=== PATIENT | female | born 1995 | race Caucasian/White ===

== ENCOUNTER 2017-12-23 18:27 | Emergency (ER) | payer OTHER ==
[~2017-12-23] VITALS: Ht 162.6 cm; Wt 120.2 kg
--- NOTE | 2017-12-23 18:37 | ED.ADGEN ---
Adult General Chief Complaint Chief Complaint ".. I have an upset stomach.... nausea and vomiting... maybe I am .... I normally see Dr. Cutler at [place]... "-.. When I vomiting .. I almost pass out...." I'm worried I may be " HPI HPI Patient is a 22 year old female who presents with above hx and complaints generalized abd. pain. Pt. has had two days of nausea and vomiting. Pt. denies intake of bad food, travel or specific ill contacts. Patient denies any vaginal discharge. Patient has had a previous episode Trichomonas. 3 lifetime sex partners. Does not remember exactly her last period. No history of trauma. Did manage to get some crackers down at noon before vomiting. Patient normally follows with Dr. Cutler at [facility]. Review of Systems Review of Systems Constitutional: Denies fever or chills [] Eyes: Denies change in visual acuity, redness, or eye pain [] HENT: Denies nasal congestion or sore throat [] Respiratory: Denies cough or shortness of breath [] Cardiovascular: No additional information not addressed in HPI [] GI: Complaints of generalized abdominal pain, nausea, vomiting,. Denies bloody stools or diarrhea [] : Denies dysuria or hematuria [] Musculoskeletal: Denies back pain or joint pain [] Integument: Denies rash or skin lesions [] Neurologic: Denies headache, focal weakness or sensory changes [] Endocrine: Denies polyuria or polydipsia [] All other systems were reviewed and found to be within normal limits, except as documented in this note. Family History Family History Noncontributory Current Medications Current Medications Current Medications Medications (Trade) Dose Ordered Sig/Hari Start Time Stop Time Status Last Admin Dose Admin Famotidine (Pepcid) 20 mg 1X ONCE 12/23/17 20:15 12/23/17 20:16 DC 12/23/17 20:07 20 MG Lactated Ringer's 1,000 ml @ 1,000 mls/hr Q1H 12/23/17 19:01 12/23/17 20:00 DC 12/23/17 19:46 1,000 MLS/HR Ondansetron HCl (Zofran Odt) 8 mg 1X ONCE 12/23/17 20:15 12/23/17 20:16 DC 12/23/17 20:07 8 MG Allergies Allergies Allergies Coded Allergies Type Severity Reaction Last Updated Verified prochlorperazine Allergy Unknown 12/23/17 Yes Physical Exam Physical Exam Constitutional: Mild distress, non-toxic appearance. [] HENT: Normocephalic, atraumatic, bilateral external ears normal, oropharynx moist, no oral exudates, nose normal. Lower lip stud Eyes: PERRLA, EOMI, conjunctiva normal, no discharge. [] Glasses Neck: Normal range of motion, no tenderness, supple, no stridor. [] Cardiovascular:Heart rate regular rhythm, no murmur [] Lungs & Thorax: Bilateral breath sounds clear to auscultation [] Abdomen: Bowel sounds normal, soft, mild generalized tenderness, no masses, no pulsatile masses. Obese. Distended. Declines rectal or pelvic exam Skin: Warm, dry, no erythema, no rash. [] Back: No tenderness, no CVA tenderness. [] Extremities: No tenderness, no cyanosis, no clubbing, ROM intact, no edema. [] No psoas or obturator sign. Neurologic: Alert and oriented X 3, normal motor function, normal sensory function, no focal deficits noted. [] Psychologic: Affect anxious, judgement normal, mood normal. [] Current Patient Data Vital Signs Vital Signs Date Time Temp Pulse Resp B/P (MAP) Pulse Ox O2 Delivery O2 Flow Rate FiO2 12/23/17 21:22 57 18 107/56 (73) 100 Room Air 12/23/17 18:50 98.2 Lab Results Laboratory Tests Test 12/23/17 19:25 White Blood Count 10.1 x10^3/uL (4.0-11.0) Red Blood Count 4.58 x10^6/uL (3.50-5.40) Hemoglobin 13.2 g/dL (12.0-15.5) Hematocrit 38.8 % (36.0-47.0) Mean Corpuscular Volume 85 fL (79-100) Mean Corpuscular Hemoglobin 29 pg (25-35) Mean Corpuscular Hemoglobin Concent 34 g/dL (31-37) Red Cell Distribution Width 14.4 % (11.5-14.5) Platelet Count 329 x10^3/uL (140-400) Neutrophils (%) (Auto) 62 % (31-73) Lymphocytes (%) (Auto) 26 % (24-48) Monocytes (%) (Auto) 9 % (0-9) Eosinophils (%) (Auto) 2 % (0-3) Basophils (%) (Auto) 1 % (0-3) Neutrophils # (Auto) 6.3 x10^3uL (1.8-7.7) Lymphocytes # (Auto) 2.7 x10^3/uL (1.0-4.8) Monocytes # (Auto) 0.9 x10^3/uL (0.0-1.1) Eosinophils # (Auto) 0.2 x10^3/uL (0.0-0.7) Basophils # (Auto) 0.1 x10^3/uL (0.0-0.2) Urine Collection Type Unknown Urine Color Yellow Urine Clarity Clear Urine pH 6.5 Urine Specific [place] 1.015 Urine Protein Neg (NEG-TRACE) Urine Glucose (UA) Neg mg/dL (NEG) Urine Ketones (Stick) Neg mg/dL (NEG) Urine Blood Neg (NEG) Urine Nitrite Neg (NEG) Urine Bilirubin Neg (NEG) Urine Urobilinogen Dipstick 0.2 mg/dL (0.2 mg/dL) Urine Leukocyte Esterase Neg (NEG) Urine RBC Rare /HPF (0-2) Urine WBC Occ /HPF (0-4) Urine Squamous Epithelial Cells Few /LPF Urine Transitional Epithelial Cells Occ /LPF Urine Bacteria Few /HPF (0-FEW) Maternal Serum HCG Beta Subunit < 1 mIU/mL (0-6) Sodium Level 138 mmol/L (136-145) Potassium Level 3.5 mmol/L (3.5-5.1) Chloride Level 102 mmol/L (98-107) Carbon Dioxide Level 31 mmol/L (21-32) Anion Gap 5 (6-14) L Blood Urea Nitrogen 7 mg/dL (7-20) Creatinine 0.7 mg/dL (0.6-1.0) Estimated GFR (Cockcroft-Gault) 105.6 Glucose Level 85 mg/dL (70-99) Calcium Level 9.2 mg/dL (8.5-10.1) Total Bilirubin 0.4 mg/dL (0.2-1.0) Direct Bilirubin 0.1 mg/dL (0.0-0.2) Aspartate Amino Transferase (AST) 25 U/L (15-37) Alanine Aminotransferase (ALT) 39 U/L (14-59) Alkaline Phosphatase 84 U/L (46-116) Troponin I Quantitative < 0.017 ng/mL (0-0.055) Total Protein 7.6 g/dL (6.4-8.2) Albumin 3.4 g/dL (3.4-5.0) Lipase 128 U/L (73-393) Urine Opiates Screen Neg (NEG) Urine Methadone Screen Neg (NEG) Urine Barbiturates Neg (NEG) Urine Phencyclidine Screen Neg (NEG) Urine Amphetamine/Methamphetamine Neg (NEG) Urine Benzodiazepines Screen Neg (NEG) Urine Cocaine Screen Neg (NEG) Urine Cannabinoids Screen Neg (NEG) Urine Ethyl Alcohol Neg (NEG) EKG EKG [] Radiology/Procedures Radiology/Procedures [] Course & Med Decision Making Course & Med Decision Making Pertinent Labs and Imaging studies reviewed. (See chart for details). Patient's stay on clear fluid diet only. No milk products no solids. Clear fluids only must allow bowel rest. Take Zofran 8 mg up 4 times a day for nausea and vomiting. Follow-up primary care. Return if any concerns. [] Final Impression Final Impression 1. Nausea and vomiting[] 2. Abdomen pain 3. Viral syndrome Dragon Disclaimer Dragon Disclaimer This electronic medical record was generated, in whole or in part, using a voice recognition dictation system. EMILY MARSH MD Dec 23, 2017 18:37
--- NOTE | 2017-12-23 19:04 | EKG ---
[address] [address] Test Date: 2017-12-23 Test Time: 19:00:12 Pat Name: MIKE CLEVELAND Department: Room: Gender: F English Instructor: : 1995 Requested By: EMILY MARSH Order Number: [id number] Reading MD: Arturo Alonzo MD Measurements Intervals [place] Rate: 63 P: 29 MS: 130 QRS: 51 QRSD: 94 T: 26 QT: 380 QTc: 392 Interpretive Statements SINUS RHYTHM Electronically Signed On 12-24-2017 12:25:32 CDT by Arturo Alonzo MD
[2017-12-23] MEDS: IV RINGERS SOLUTION,LACTATED 1,000 ML IV SCH (19:46)
[2017-12-23 19:53] LABS: BASO # 0.1 x10^3/uL (0.0-0.2); BASO % 1 % (0-3); EOS # 0.2 x10^3/uL (0.0-0.7); EOS % 2 % (0-3); HEMATOCRIT 38.8 % (36.0-47.0); HEMOGLOBIN 13.2 g/dL (12.0-15.5); LYMPH # 2.7 x10^3/uL (1.0-4.8); LYMPH % 26 % (24-48); MEAN CORPUSCULAR HEMOGLOBIN 29 pg (25-35); MEAN CORPUSCULAR HGB CONC 34 g/dL (31-37); MEAN CORPUSCULAR VOLUME 85 fL (79-100); MONO # 0.9 x10^3/uL (0.0-1.1); MONO % 9 % (0-9); NEUT # 6.3 x10^3uL (1.8-7.7); NEUT % 62 % (31-73); PLATELET COUNT 329 x10^3/uL (140-400); RED BLOOD COUNT 4.58 x10^6/uL (3.50-5.40); RED CELL DISTRIBUTION WIDTH 14.4 % (11.5-14.5); WHITE BLOOD COUNT 10.1 x10^3/uL (4.0-11.0)
[2017-12-23 19:59] LABS: AMPHETAMINE/METHAMPHETAMINE NEG (NEG); BARBITURATES NEG (NEG); BENZODIAZEPINES NEG (NEG); CANNABINOIDS NEG (NEG); COCAINE NEG (NEG); METHADONE NEG (NEG); OPIATES NEG (NEG); PHENCYCLIDINE NEG (NEG)
[2017-12-23 20:02] LABS: BACTERIA,URINE FEW /HPF (0-FEW); BILIRUBIN,URINE NEG (NEG); CLARITY,URINE CLEAR; COLOR,URINE YELLOW; GLUCOSE,URINE NEG (NEG); NITRITE,URINE NEG (NEG); RBC,URINE RARE /HPF (0-2); UROBILINOGEN,URINE 0.2 mg/dL (0.2 mg/dL); WBC,URINE OCC /HPF (0-4)
[2017-12-23 20:03] LABS: SQUAMOUS EPITHELIAL CELL,UR FEW /LPF
[2017-12-23] MEDS: FAMOTIDINE 20 MG TABLET PO ONE (20:07)
[2017-12-23] MEDS: ONDANSETRON ODT 4 MG TAB.RAPDIS PO ONE (20:07)
[2017-12-23 20:09] LABS: ALBUMIN 3.4 g/dL (3.4-5.0); CALCIUM 9.2 mg/dL (8.5-10.1); CREATININE 0.7 mg/dL (0.6-1.0); DIRECT BILIRUBIN 0.1 mg/dL (0.0-0.2); GFR 105.6; POTASSIUM 3.5 mmol/L (3.5-5.1); TOTAL BILIRUBIN 0.4 mg/dL (0.2-1.0); TOTAL PROTEIN 7.6 g/dL (6.4-8.2)
[2017-12-23] MEDS ORDERED: ONDA8TAB12 PO (20:27)
[2017-12-23 21:22] VITALS: BP 107/56
== END 2017-12-23 21:22 | disposition home or self-care (01) ==
LOC: ER 18:27
DX: B34.9 Viral infection, unspecified (principal); R11.2 Nausea with vomiting, unspecified; Z88.8 Allergy status to other drugs, medicaments and biological substances
CPT/HCPCS: 36415; 80048; 80076; 80307; 81001; 83690; 84484; 84702; 85025; 93005; 96360; 99285; J7120; Q0162; G0479

== ENCOUNTER 2018-03-22 17:37 | Emergency (ER) | payer OTHER ==
[~2018-03-22] VITALS: Ht 165.1 cm; Wt 115.1 kg
[~2018-03-22 17:37] MED LIST: ONDA8TAB12 PO
[2018-03-22] MEDS ORDERED: IV NORMAL SALINE 1,000ML 1,000 ML IV SCH (17:50)
--- NOTE | 2018-03-22 17:53 | PHYS DOC ---
Past History Past Medical History: Anxiety, Asthma, Depression, Other Past Surgical History: Appendectomy, Cholecystectomy Alcohol Use: Occasionally Drug Use: None Adult General Chief Complaint Chief Complaint: NAUSEA/VOMITING/DIARRHEA HPI HPI Patient is a 22 year old female who presents with of nausea and vomiting and diarrhea for the last 24 hours. Patient states she vomited more than 10-15 times with nonbloody material and had the same number of diarrhea for the last 24 hours with abdominal muscle pain during episodes of vomiting. Patient denies fever and chills, urinary symptoms, sick contact. Review of Systems Review of Systems Constitutional: Denies fever or chills [] Eyes: Denies change in visual acuity, redness, or eye pain [] HENT: Denies nasal congestion or sore throat [] Respiratory: Denies cough or shortness of breath [] Cardiovascular: No additional information not addressed in HPI [] GI: Reports abdominal pain, nausea, vomiting, diarrhea [] : Denies dysuria or hematuria [] Musculoskeletal: Denies back pain or joint pain [] Integument: Denies rash or skin lesions [] Neurologic: Denies headache, focal weakness or sensory changes [] Endocrine: Denies polyuria or polydipsia [] All other systems were reviewed and found to be within normal limits, except as documented in this note. Allergies Allergies Allergies Coded Allergies Type Severity Reaction Last Updated Verified prochlorperazine Allergy Unknown 12/23/17 Yes Physical Exam Physical Exam Constitutional: Well nourished, mild distress, non-toxic appearance. [] HENT: Normocephalic, atraumatic, oropharynx dry, no oral exudates, nose normal. [] Eyes: PERRLA, EOMI, conjunctiva normal, no discharge. [] Neck: Normal range of motion, no tenderness, supple, no stridor. [] Cardiovascular:Heart rate regular rhythm, no murmur [] Lungs & Thorax: Bilateral breath sounds clear to auscultation [] Abdomen: Bowel sounds normal, soft, no tenderness, no masses, no pulsatile masses. [] Skin: Warm, dry, no erythema, no rash. [] Back: No tenderness, no CVA tenderness. [] Extremities: No tenderness, no cyanosis, no clubbing, ROM intact, no edema. [] Neurologic: Alert and oriented X 3, normal motor function, normal sensory function, no focal deficits noted. [] Psychologic: Affect normal, judgement normal, mood normal. [] EKG EKG [] Radiology/Procedures Radiology/Procedures [] Course & Med Decision Making Course & Med Decision Making Pertinent Labs are pending. Patient's care transferred to at 1800. I took over care of the patient at 1800. The patient's labs are unremarkable. She has gotten 2 L of normal saline as well as 8 mg of Zofran. This has controlled her vomiting. She has not had further diarrhea in the ED. I will discharge her with Zofran ODT. She is stable for discharge at this time. [] Dragon Disclaimer Dragon Disclaimer This electronic medical record was generated, in whole or in part, using a voice recognition dictation system. Departure Departure: Referrals: FUNMI CUMMINGS MD (PCP) Scripts Ondansetron Hcl (ZOFRAN) 8 Mg Tablet 1 TAB PO Q8HRS PRN for NAUSEA/VOMITING, #20 TAB Prov: PATRICIA NUNEZ DO 03/22/18 LYDIA SNYDER MD Mar 22, 2018 17:53 PATRICIA NUNEZ DO Mar 22, 2018 20:11
[2018-03-22] MEDS ORDERED: ONDANSETRON PF 4 MG/2 ML VIAL. IV ONE ×2 (18:00→20:15)
[2018-03-22 18:19] LABS: BASO % 0 % (0-3); EOS # 0.1 x10^3/uL (0.0-0.7); EOS % 1 % (0-3); HEMOGLOBIN 13.3 g/dL (12.0-15.5); LYMPH # 0.5 x10^3/uL (1.0-4.8); LYMPH % 4 % (24-48); MEAN CORPUSCULAR HEMOGLOBIN 28 pg (25-35); MEAN CORPUSCULAR HGB CONC 33 g/dL (31-37); MEAN CORPUSCULAR VOLUME 85 fL (79-100); MONO # 0.6 x10^3/uL (0.0-1.1); MONO % 5 % (0-9); NEUT # 10.5 x10^3uL (1.8-7.7); NEUT % 90 % (31-73); PLATELET COUNT 269 x10^3/uL (140-400); RED CELL DISTRIBUTION WIDTH 14.2 % (11.5-14.5); WHITE BLOOD COUNT 11.7 x10^3/uL (4.0-11.0)
[2018-03-22 18:26] LABS: ALBUMIN 3.6 g/dL (3.4-5.0); ALBUMIN/GLOBULIN RATIO 0.9 (1.0-1.7); CALCIUM 8.8 mg/dL (8.5-10.1); CREATININE 0.7 mg/dL (0.6-1.0); GFR 105.6; POTASSIUM 3.6 mmol/L (3.5-5.1); TOTAL BILIRUBIN 0.5 mg/dL (0.2-1.0); TOTAL PROTEIN 7.7 g/dL (6.4-8.2)
[2018-03-22] MEDS ORDERED: FAMOTIDINE 20 MG/2 ML VIAL IVP ONE (18:30)
[2018-03-22] MEDS ORDERED: IV NORMAL SALINE 1,000ML 1,000 ML IV ONE (18:45)
[2018-03-22 19:35] LABS: BILIRUBIN,URINE NEG (NEG); CLARITY,URINE HAZY; COLOR,URINE YELLOW; GLUCOSE,URINE NEG (NEG); NITRITE,URINE NEG (NEG); UROBILINOGEN,URINE 0.2 mg/dL (0.2 mg/dL)
[2018-03-22 19:36] LABS: BACTERIA,URINE 0 /HPF (0-FEW); SQUAMOUS EPITHELIAL CELL,UR FEW /LPF
[2018-03-22 19:38] LABS: U PREG PATIENT NEGATIVE (NEG)
[2018-03-22 20:01] VITALS: BP 111/53
[2018-03-22] MEDS ORDERED: ONDA8TAB9 PO (20:03)
== END 2018-03-22 20:17 | disposition home or self-care (01) ==
LOC: ER 17:37
DX: R11.2 Nausea with vomiting, unspecified (principal); R19.7 Diarrhea, unspecified; R10.9 Unspecified abdominal pain; F41.9 Anxiety disorder, unspecified; F32.9 Major depressive disorder, single episode, unspecified; J45.909 Unspecified asthma, uncomplicated; Z90.49 Acquired absence of other specified parts of digestive tract; Z90.89 Acquired absence of other organs; Z88.8 Allergy status to other drugs, medicaments and biological substances
CPT/HCPCS: 36415; 80053; 81001; 81025; 83690; 85025; 96361; 96374; 96375; 96376; 99283; J2405; J3490; J7030

== ENCOUNTER 2018-05-06 21:11 | Emergency (ER) | payer OTHER ==
[~2018-05-06] VITALS: Ht 165.1 cm; Wt 115.7 kg
[2018-05-06 21:11] VITALS: BP 137/73
[~2018-05-06 21:11] MED LIST changes: +ONDA8TAB9 PO
--- NOTE | 2018-05-06 21:24 | ED.ADGEN ---
Past History Past Medical History: Anxiety, Asthma, Depression, Migraines, STD, Other Past Surgical History: Appendectomy, Cholecystectomy Alcohol Use: Occasionally Drug Use: None Adult General Chief Complaint Chief Complaint "...I was walking into my house... and slipped on some Ice... and fell on butt... but my abdomen started hurting.. and I am worried.. I am ... I have not had a period for a month..." HPI HPI Patient is a 22 year old female who presents with above hx and complaints falling on a ice patch. Pt. fell on gluteal area. Pain post fall in in lower abdomen. Pt. concerned she is is . Pt. mother is a nurse and advised to her to come to ED and get an evaluation. Mother reportedly told her she must get a blood test for , because the urine tests are always negative for in her family. Patient does report a spinal for a months since her last period. Hx. 6 lifetime sexual partners. One episode of Trichomonas that was treated. Gives a history of chronic back pain. No vaginal discharge. Hx. no previous pregnancies. History of appendectomy and cholecystectomy. Does have a history of anxiety, chronic back pain, asthma, depression and migraines. Patient follows with Dr. Cutler. Review of Systems Review of Systems Constitutional: Denies fever or chills [] Eyes: Denies change in visual acuity, redness, or eye pain [] HENT: Denies nasal congestion or sore throat [] Respiratory: Denies cough or shortness of breath [] Cardiovascular: No additional information not addressed in HPI [] GI: Complaints of lower abdominal pain, nausea. Denies vomiting, bloody stools or diarrhea [] : Denies dysuria or hematuria [ Hx. of missed period. Musculoskeletal: Chronic low back pain . Denies acute changes or joint pain [] Integument: Denies rash or skin lesions [] Neurologic: Denies headache, focal weakness or sensory changes [] Endocrine: Denies polyuria or polydipsia [] All other systems were reviewed and found to be within normal limits, except as documented in this note. Family History Family History Non-contributory Current Medications Current Medications Current Medications Medications (Trade) Dose Ordered Sig/Hari Start Time Stop Time Status Last Admin Dose Admin Lactated Ringer's 1,000 ml @ 1,000 mls/hr Q1H 05/06/18 21:29 05/06/18 22:28 DC 05/06/18 21:42 1,000 MLS/HR Allergies Allergies Allergies Coded Allergies Type Severity Reaction Last Updated Verified prochlorperazine Allergy Unknown 05/06/18 Yes Physical Exam Physical Exam Constitutional: Mild to moderate distress, non-toxic appearance. [] HENT: Normocephalic, atraumatic, bilateral external ears normal, oropharynx moist, no oral exudates, nose normal. [] Eyes: PERRLA, EOMI, conjunctiva normal, no discharge. [] Neck: Normal range of motion, no tenderness, supple, no stridor. [] Cardiovascular:Heart rate regular rhythm, no murmur [] Lungs & Thorax: Bilateral breath sounds clear to auscultation [] Abdomen: Bowel sounds normal, soft, , no masses, no pulsatile masses. [] Lower abdomen tenderness. Old surgery scars. Obese. Skin: Warm, dry, no erythema, no rash. [] Back: no CVA tenderness. [] Mild para- muscular lumbar tenderness. No midline tenderness. Extremities: , no cyanosis, no clubbing, ROM intact, no edema. [] No psoas or obturator sign. Neurologic: Alert and oriented X 3, normal motor function, normal sensory function, no focal deficits noted. []DTRs are +2 at patella. Psychologic: Affect anxious, judgement normal, mood normal. [] Current Patient Data Vital Signs Vital Signs Date Time Temp Pulse Resp B/P (MAP) Pulse Ox O2 Delivery O2 Flow Rate FiO2 05/06/18 21:11 97.6 95 20 99 Room Air Lab Results Laboratory Tests Test 05/06/18 21:00 05/06/18 21:27 05/06/18 21:33 Urine Collection Type Unknown Urine Color Straw Urine Clarity Clear Urine pH 6.0 Urine Specific [place] <=1.005 Urine Protein Neg (NEG-TRACE) Urine Glucose (UA) Neg mg/dL (NEG) Urine Ketones (Stick) Neg mg/dL (NEG) Urine Blood Neg (NEG) Urine Nitrite Neg (NEG) Urine Bilirubin Neg (NEG) Urine Urobilinogen Dipstick 0.2 mg/dL (0.2 mg/dL) Urine Leukocyte Esterase Neg (NEG) Urine RBC 0 /HPF (0-2) Urine WBC Occ /HPF (0-4) Urine Squamous Epithelial Cells Occ /LPF Urine Bacteria 0 /HPF (0-FEW) Urine Opiates Screen Neg (NEG) Urine Methadone Screen Neg (NEG) Urine Barbiturates Neg (NEG) Urine Phencyclidine Screen Neg (NEG) Urine Amphetamine/Methamphetamine Neg (NEG) Urine Benzodiazepines Screen Neg (NEG) Urine Cocaine Screen Neg (NEG) Urine Cannabinoids Screen Neg (NEG) Urine Ethyl Alcohol Neg (NEG) POC Urine HCG, Qualitative hcg negative (Negative) White Blood Count 11.6 x10^3/uL (4.0-11.0) H Red Blood Count 4.62 x10^6/uL (3.50-5.40) Hemoglobin 13.1 g/dL (12.0-15.5) Hematocrit 38.8 % (36.0-47.0) Mean Corpuscular Volume 84 fL (79-100) Mean Corpuscular Hemoglobin 28 pg (25-35) Mean Corpuscular Hemoglobin Concent 34 g/dL (31-37) Red Cell Distribution Width 14.0 % (11.5-14.5) Platelet Count 317 x10^3/uL (140-400) Neutrophils (%) (Auto) 69 % (31-73) Lymphocytes (%) (Auto) 22 % (24-48) L Monocytes (%) (Auto) 7 % (0-9) Eosinophils (%) (Auto) 1 % (0-3) Basophils (%) (Auto) 1 % (0-3) Neutrophils # (Auto) 7.9 x10^3uL (1.8-7.7) H Lymphocytes # (Auto) 2.5 x10^3/uL (1.0-4.8) Monocytes # (Auto) 0.8 x10^3/uL (0.0-1.1) Eosinophils # (Auto) 0.2 x10^3/uL (0.0-0.7) Basophils # (Auto) 0.1 x10^3/uL (0.0-0.2) Maternal Serum HCG Beta Subunit 1 mIU/mL (0-6) Sodium Level 140 mmol/L (136-145) Potassium Level 3.5 mmol/L (3.5-5.1) Chloride Level 103 mmol/L (98-107) Carbon Dioxide Level 26 mmol/L (21-32) Anion Gap 11 (6-14) Blood Urea Nitrogen 17 mg/dL (7-20) Creatinine 0.7 mg/dL (0.6-1.0) Estimated GFR (Cockcroft-Gault) 105.6 Glucose Level 83 mg/dL (70-99) Calcium Level 9.5 mg/dL (8.5-10.1) Total Bilirubin 0.4 mg/dL (0.2-1.0) Direct Bilirubin 0.1 mg/dL (0.0-0.2) Aspartate Amino Transferase (AST) 23 U/L (15-37) Alanine Aminotransferase (ALT) 38 U/L (14-59) Alkaline Phosphatase 76 U/L (46-116) Total Protein 7.6 g/dL (6.4-8.2) Albumin 3.7 g/dL (3.4-5.0) Amylase Level 46 U/L (25-115) Lipase 116 U/L (73-393) EKG EKG [] Radiology/Procedures Radiology/Procedures [] Course & Med Decision Making Course & Med Decision Making Pertinent Labs and Imaging studies reviewed. (See chart for details) Pt. take Tylenol and ibuprofen for discomfort. Ice packs as needed. Follow-up primary care. Return if any concerns. [] Final Impression Final Impression 1. Abdomen Pain[]-Suspect muscle strain 2. Hx Fall 3. Leukocytosis- mild 11.6 4. Back pain- muscle strain Dragon Disclaimer Dragon Disclaimer This electronic medical record was generated, in whole or in part, using a voice recognition dictation system. Dragon Disclaimer This chart was dictated in whole or in part using Voice Recognition software in a busy, high-work load, and often noisy Emergency Department environment. It may contain unintended and wholly unrecognized errors or omissions. Discharge Summary Visit Information Final Diagnosis Problems Medical Problems: (1) Pain in the abdomen Status: Acute Brief Hospital Course Allergies Allergies Coded Allergies Type Severity Reaction Last Updated Verified prochlorperazine Allergy Unknown 05/06/18 Yes Vital Signs Vital Signs Date Time Temp Pulse Resp B/P (MAP) Pulse Ox O2 Delivery O2 Flow Rate FiO2 05/06/18 21:11 97.6 95 20 99 Room Air Lab Results Laboratory Tests Test 05/06/18 21:00 05/06/18 21:27 05/06/18 21:33 Urine Collection Type Unknown Urine Color Straw Urine Clarity Clear Urine pH 6.0 Urine Specific [place] <=1.005 Urine Protein Neg (NEG-TRACE) Urine Glucose (UA) Neg mg/dL (NEG) Urine Ketones (Stick) Neg mg/dL (NEG) Urine Blood Neg (NEG) Urine Nitrite Neg (NEG) Urine Bilirubin Neg (NEG) Urine Urobilinogen Dipstick 0.2 mg/dL (0.2 mg/dL) Urine Leukocyte Esterase Neg (NEG) Urine RBC 0 /HPF (0-2) Urine WBC Occ /HPF (0-4) Urine Squamous Epithelial Cells Occ /LPF Urine Bacteria 0 /HPF (0-FEW) Urine Opiates Screen Neg (NEG) Urine Methadone Screen Neg (NEG) Urine Barbiturates Neg (NEG) Urine Phencyclidine Screen Neg (NEG) Urine Amphetamine/Methamphetamine Neg (NEG) Urine Benzodiazepines Screen Neg (NEG) Urine Cocaine Screen Neg (NEG) Urine Cannabinoids Screen Neg (NEG) Urine Ethyl Alcohol Neg (NEG) Bedside Urine HCG, Qualitative hcg negative (Negative) White Blood Count 11.6 x10^3/uL (4.0-11.0) Red Blood Count 4.62 x10^6/uL (3.50-5.40) Hemoglobin 13.1 g/dL (12.0-15.5) Hematocrit 38.8 % (36.0-47.0) Mean Corpuscular Volume 84 fL (79-100) Mean Corpuscular Hemoglobin 28 pg (25-35) Mean Corpuscular Hemoglobin Concent 34 g/dL (31-37) Red Cell Distribution Width 14.0 % (11.5-14.5) Platelet Count 317 x10^3/uL (140-400) Neutrophils (%) (Auto) 69 % (31-73) Lymphocytes (%) (Auto) 22 % (24-48) Monocytes (%) (Auto) 7 % (0-9) Eosinophils (%) (Auto) 1 % (0-3) Basophils (%) (Auto) 1 % (0-3) Neutrophils # (Auto) 7.9 x10^3uL (1.8-7.7) Lymphocytes # (Auto) 2.5 x10^3/uL (1.0-4.8) Monocytes # (Auto) 0.8 x10^3/uL (0.0-1.1) Eosinophils # (Auto) 0.2 x10^3/uL (0.0-0.7) Basophils # (Auto) 0.1 x10^3/uL (0.0-0.2) Maternal Serum HCG Beta Subunit 1 mIU/mL (0-6) Sodium Level 140 mmol/L (136-145) Potassium Level 3.5 mmol/L (3.5-5.1) Chloride Level 103 mmol/L (98-107) Carbon Dioxide Level 26 mmol/L (21-32) Anion Gap 11 (6-14) Blood Urea Nitrogen 17 mg/dL (7-20) Creatinine 0.7 mg/dL (0.6-1.0) Estimated GFR (Cockcroft-Gault) 105.6 Glucose Level 83 mg/dL (70-99) Calcium Level 9.5 mg/dL (8.5-10.1) Total Bilirubin 0.4 mg/dL (0.2-1.0) Direct Bilirubin 0.1 mg/dL (0.0-0.2) Aspartate Amino Transf (AST/SGOT) 23 U/L (15-37) Alanine Aminotransferase (ALT/SGPT) 38 U/L (14-59) Alkaline Phosphatase 76 U/L (46-116) Total Protein 7.6 g/dL (6.4-8.2) Albumin 3.7 g/dL (3.4-5.0) Amylase Level 46 U/L (25-115) Lipase 116 U/L (73-393) Brief Hospital Course Ms. Mendez is a 22 old female who presented with hx fall on her bottom. Mild abd. pain. Very concerned she is . Pt. found not to be . Discharge Information Condition at Discharge: Improved, Stable Disposition/Orders: D/C to Home Dischare Medications Current Medications Lactated Ringer's 1,000 ml @ 1,000 mls/hr Q1H IV Last administered on at 21:42; Admin Dose 1,000 MLS/HR; Start 05/06/18 at 21:29; Stop 05/06/18 at 22:28; Status DC Active Scripts Active Zofran (Ondansetron Hcl) 8 Mg Tablet 1 Tab PO Q8HRS PRN Zofran Odt (Ondansetron) 8 Mg Tab.rapdis 8 Mg PO QIDPRN PRN EMILY MARSH MD May 06, 2018 21:24
[2018-05-06] MEDS ORDERED: IV RINGERS SOLUTION,LACTATED 1,000 ML IV SCH (21:29)
[2018-05-06 21:50] LABS: BASO # 0.1 x10^3/uL (0.0-0.2); BASO % 1 % (0-3); EOS # 0.2 x10^3/uL (0.0-0.7); EOS % 1 % (0-3); HEMATOCRIT 38.8 % (36.0-47.0); HEMOGLOBIN 13.1 g/dL (12.0-15.5); LYMPH # 2.5 x10^3/uL (1.0-4.8); LYMPH % 22 % (24-48); MEAN CORPUSCULAR HEMOGLOBIN 28 pg (25-35); MEAN CORPUSCULAR HGB CONC 34 g/dL (31-37); MEAN CORPUSCULAR VOLUME 84 fL (79-100); MONO # 0.8 x10^3/uL (0.0-1.1); MONO % 7 % (0-9); NEUT # 7.9 x10^3uL (1.8-7.7); NEUT % 69 % (31-73); PLATELET COUNT 317 x10^3/uL (140-400); RED BLOOD COUNT 4.62 x10^6/uL (3.50-5.40); WHITE BLOOD COUNT 11.6 x10^3/uL (4.0-11.0)
[2018-05-06 21:53] LABS: BARBITURATES NEG (NEG); BENZODIAZEPINES NEG (NEG); CANNABINOIDS NEG (NEG); COCAINE NEG (NEG); METHADONE NEG (NEG); OPIATES NEG (NEG); PHENCYCLIDINE NEG (NEG)
[2018-05-06 21:54] LABS: AMPHETAMINE/METHAMPHETAMINE NEG (NEG)
[2018-05-06 21:56] LABS: BACTERIA,URINE 0 /HPF (0-FEW); BILIRUBIN,URINE NEG (NEG); CLARITY,URINE CLEAR; COLOR,URINE STRAW; GLUCOSE,URINE NEG (NEG); NITRITE,URINE NEG (NEG); RBC,URINE 0 /HPF (0-2); SQUAMOUS EPITHELIAL CELL,UR OCC /LPF; UROBILINOGEN,URINE 0.2 mg/dL (0.2 mg/dL); WBC,URINE OCC /HPF (0-4)
[2018-05-06 22:10] LABS: ALBUMIN 3.7 g/dL (3.4-5.0); CALCIUM 9.5 mg/dL (8.5-10.1); CREATININE 0.7 mg/dL (0.6-1.0); DIRECT BILIRUBIN 0.1 mg/dL (0.0-0.2); GFR 105.6; POTASSIUM 3.5 mmol/L (3.5-5.1); TOTAL BILIRUBIN 0.4 mg/dL (0.2-1.0); TOTAL PROTEIN 7.6 g/dL (6.4-8.2)
== END 2018-05-06 23:06 | disposition home or self-care (01) ==
LOC: ER 21:11
DX: S39.011A Strain of muscle, fascia and tendon of abdomen, initial encounter (principal); S39.012A Strain of muscle, fascia and tendon of lower back, initial encounter; D72.829 Elevated white blood cell count, unspecified; G89.29 Other chronic pain; F41.9 Anxiety disorder, unspecified; J45.909 Unspecified asthma, uncomplicated; F32.9 Major depressive disorder, single episode, unspecified; G43.909 Migraine, unspecified, not intractable, without status migrainosus; Z90.49 Acquired absence of other specified parts of digestive tract; Z90.89 Acquired absence of other organs; Z88.8 Allergy status to other drugs, medicaments and biological substances; W00.0XXA Fall on same level due to ice and snow, initial encounter; Y93.01 Activity, walking, marching and hiking; Y92.098 Other place in other non-institutional residence as the place of occurrence of the external cause; Y99.8 Other external cause status
CPT/HCPCS: 36415; 80048; 80076; 80307; 81001; 81025; 82150; 83690; 84702; 85025; 99283; J7120; 96360

== ENCOUNTER 2018-05-13 21:34 | Emergency (ER) | payer OTHER ==
[~2018-05-13] VITALS: Ht 165.1 cm; Wt 113.4 kg
--- NOTE | 2018-05-13 21:47 | ED.ADGEN ---
Past History Past Medical History: Anxiety, Asthma, Depression, Migraines, STD, Other Past Surgical History: Appendectomy, Cholecystectomy Alcohol Use: Occasionally Drug Use: Marijuana Adult General Chief Complaint Chief Complaint " .. My foot has been hurting since last night... it is very painful to walk on...." HPI HPI Patient is a 22 year old FEMALE who presents with above hx of Lt. foot pain. Patient does admit to drinking heavily last night. Doesn't remember consuming at least one pitcher a Budweiser. Patient denies previous injury to foot. Patient denies any upper leg tenderness. Distal neurovascular intact. Does have positive pain response to foot squeeze. Pain appears to be localized to left lateral metatarsal area. Review of Systems Review of Systems Constitutional: Denies fever or chills [] Eyes: Denies change in visual acuity, redness, or eye pain [] HENT: Denies nasal congestion or sore throat [] Respiratory: Denies cough or shortness of breath [] Cardiovascular: No additional information not addressed in HPI [] GI: Denies abdominal pain, nausea, vomiting, bloody stools or diarrhea [] : Denies dysuria or hematuria [] Musculoskeletal: Denies back pain or joint pain []complaints of left foot pain Integument: Denies rash or skin lesions [] Neurologic: Denies headache, focal weakness or sensory changes [] Endocrine: Denies polyuria or polydipsia [] All other systems were reviewed and found to be within normal limits, except as documented in this note. Family History Family History Noncontributory Current Medications Current Medications See Nursing for home meds. Allergies Allergies Allergies Coded Allergies Type Severity Reaction Last Updated Verified prochlorperazine Allergy Unknown 05/06/18 Yes Physical Exam Physical Exam Constitutional: Moderately acute distress, non-toxic appearance. [] HENT: Normocephalic, atraumatic, bilateral external ears normal, oropharynx moist, no oral exudates, nose normal. [] Eyes: PERRLA, EOMI, conjunctiva normal, no discharge. [] Neck: Normal range of motion, no tenderness, supple, no stridor. [] Cardiovascular:Heart rate regular rhythm, no murmur [] Lungs & Thorax: Bilateral breath sounds clear to auscultation [] Abdomen: Bowel sounds normal, soft, no tenderness, no masses, no pulsatile masses. Obese. Old surgery scars. Skin: Warm, dry, no erythema, no rash. [] Back: No tenderness, no CVA tenderness. [] Extremities: Left foot tenderness, no cyanosis, no clubbing, ROM intact, no edema. [] Except findings in Lt. foot. Neurologic: Alert and oriented X 3, normal motor function, normal sensory function, no focal deficits noted. [] Psychologic: Affect normal, judgement normal, mood normal. [] Current Patient Data Vital Signs Vital Signs Date Time Temp Pulse Resp B/P (MAP) Pulse Ox O2 Delivery O2 Flow Rate FiO2 05/13/18 21:48 97.8 66 18 100 Room Air Lab Results Laboratory Tests Test 05/13/18 22:00 05/13/18 22:10 Urine Collection Type Unknown Urine Color Straw Urine Clarity Cloudy Urine pH 7.5 Urine Specific Petty 1.020 Urine Protein Neg (NEG-TRACE) Urine Glucose (UA) Neg mg/dL (NEG) Urine Ketones (Stick) Neg mg/dL (NEG) Urine Blood Neg (NEG) Urine Nitrite Neg (NEG) Urine Bilirubin Neg (NEG) Urine Urobilinogen Dipstick 0.2 mg/dL (0.2 mg/dL) Urine Leukocyte Esterase Neg (NEG) Urine RBC Occ /HPF (0-2) Urine WBC 1-4 /HPF (0-4) Urine Squamous Epithelial Cells Mod /LPF Urine Amorphous Sediment Present /HPF Urine Bacteria Few /HPF (0-FEW) Urine Granular Casts Mod /HPF Urine Mucus Slight /LPF Urine Opiates Screen Neg (NEG) Urine Methadone Screen Neg (NEG) Urine Barbiturates Neg (NEG) Urine Phencyclidine Screen Neg (NEG) Urine Amphetamine/Methamphetamine Neg (NEG) Urine Benzodiazepines Screen Neg (NEG) Urine Cocaine Screen Neg (NEG) Urine Cannabinoids Screen Pos (NEG) Urine Ethyl Alcohol Neg (NEG) POC Urine HCG, Qualitative hcg negative (Negative) EKG EKG [] Radiology/Procedures Radiology/Procedures My interpretation of left foot films shows no obvious fracture or dislocation.[] Course & Med Decision Making Course & Med Decision Making Pertinent Labs and Imaging studies reviewed. (See chart for details) Ice, elevation, rest, Larry wrap, and take Tylenol and ibuprofen for pain. Follow- up primary care. Return if any concerns. Distal neurovascular intact after application of Larry wrap. [] Final Impression Final Impression 1. Left foot strain[] 2. Tobacco and marijuana use Dragon Disclaimer Dragon Disclaimer This electronic medical record was generated, in whole or in part, using a voice recognition dictation system. Dragon Disclaimer This chart was dictated in whole or in part using Voice Recognition software in a busy, high-work load, and often noisy Emergency Department environment. It may contain unintended and wholly unrecognized errors or omissions. Dragon Disclaimer This chart was dictated in whole or in part using Voice Recognition software in a busy, high-work load, and often noisy Emergency Department environment. It may contain unintended and wholly unrecognized errors or omissions. Discharge Summary Visit Information Final Diagnosis Problems Medical Problems: (1) Sprain of foot, left Status: Acute Brief Hospital Course Allergies Allergies Coded Allergies Type Severity Reaction Last Updated Verified prochlorperazine Allergy Unknown 05/06/18 Yes Vital Signs Vital Signs Date Time Temp Pulse Resp B/P (MAP) Pulse Ox O2 Delivery O2 Flow Rate FiO2 05/13/18 21:48 97.8 66 18 100 Room Air Lab Results Laboratory Tests Test 05/13/18 22:00 05/13/18 22:10 Urine Collection Type Unknown Urine Color Straw Urine Clarity Cloudy Urine pH 7.5 Urine Specific Petty 1.020 Urine Protein Neg (NEG-TRACE) Urine Glucose (UA) Neg mg/dL (NEG) Urine Ketones (Stick) Neg mg/dL (NEG) Urine Blood Neg (NEG) Urine Nitrite Neg (NEG) Urine Bilirubin Neg (NEG) Urine Urobilinogen Dipstick 0.2 mg/dL (0.2 mg/dL) Urine Leukocyte Esterase Neg (NEG) Urine RBC Occ /HPF (0-2) Urine WBC 1-4 /HPF (0-4) Urine Squamous Epithelial Cells Mod /LPF Urine Amorphous Sediment Present /HPF Urine Bacteria Few /HPF (0-FEW) Urine Granular Casts Mod /HPF Urine Mucus Slight /LPF Urine Opiates Screen Neg (NEG) Urine Methadone Screen Neg (NEG) Urine Barbiturates Neg (NEG) Urine Phencyclidine Screen Neg (NEG) Urine Amphetamine/Methamphetamine Neg (NEG) Urine Benzodiazepines Screen Neg (NEG) Urine Cocaine Screen Neg (NEG) Urine Cannabinoids Screen Pos (NEG) Urine Ethyl Alcohol Neg (NEG) Bedside Urine HCG, Qualitative hcg negative (Negative) Brief Hospital Course Ms. Mendez is a 22 old female who presented with Lt foot sprain. Discharge Information Condition at Discharge: Improved, Stable Disposition/Orders: D/C to Home Dischare Medications Active Scripts Active Zofran (Ondansetron Hcl) 8 Mg Tablet 1 Tab PO Q8HRS PRN Zofran Odt (Ondansetron) 8 Mg Tab.rapdis 8 Mg PO QIDPRN PRN Discharge Summary Visit Information Final Diagnosis Problems Medical Problems: (1) Sprain of foot, left Status: Acute Brief Hospital Course Allergies Allergies Coded Allergies Type Severity Reaction Last Updated Verified prochlorperazine Allergy Unknown 05/06/18 Yes Vital Signs Vital Signs Date Time Temp Pulse Resp B/P (MAP) Pulse Ox O2 Delivery O2 Flow Rate FiO2 05/13/18 21:48 97.8 66 18 100 Room Air Lab Results Laboratory Tests Test 05/13/18 22:00 05/13/18 22:10 Urine Collection Type Unknown Urine Color Straw Urine Clarity Cloudy Urine pH 7.5 Urine Specific Petty 1.020 Urine Protein Neg (NEG-TRACE) Urine Glucose (UA) Neg mg/dL (NEG) Urine Ketones (Stick) Neg mg/dL (NEG) Urine Blood Neg (NEG) Urine Nitrite Neg (NEG) Urine Bilirubin Neg (NEG) Urine Urobilinogen Dipstick 0.2 mg/dL (0.2 mg/dL) Urine Leukocyte Esterase Neg (NEG) Urine RBC Occ /HPF (0-2) Urine WBC 1-4 /HPF (0-4) Urine Squamous Epithelial Cells Mod /LPF Urine Amorphous Sediment Present /HPF Urine Bacteria Few /HPF (0-FEW) Urine Granular Casts Mod /HPF Urine Mucus Slight /LPF Urine Opiates Screen Neg (NEG) Urine Methadone Screen Neg (NEG) Urine Barbiturates Neg (NEG) Urine Phencyclidine Screen Neg (NEG) Urine Amphetamine/Methamphetamine Neg (NEG) Urine Benzodiazepines Screen Neg (NEG) Urine Cocaine Screen Neg (NEG) Urine Cannabinoids Screen Pos (NEG) Urine Ethyl Alcohol Neg (NEG) Bedside Urine HCG, Qualitative hcg negative (Negative) Brief Hospital Course Ms. Mendez is a 22 old [sex] who presented with [ ] Discharge Information Dischare Medications Active Scripts Active Zofran (Ondansetron Hcl) 8 Mg Tablet 1 Tab PO Q8HRS PRN Zofran Odt (Ondansetron) 8 Mg Tab.rapdis 8 Mg PO QIDPRN PRN EMILY MARSH MD May 13, 2018 21:47
[2018-05-13 21:48] VITALS: BP 130/71
--- NOTE | 2018-05-13 22:13 | RAD ---
Indication:Left foot pain x3 days TECHNIQUE: 3 views of the left foot COMPARISON:None FINDINGS/ impression: No acute fracture or dislocation. No arthritis. Electronically signed by: Erik Ybarra DO (05/13/2018 10:08 PM) [facility]
[2018-05-13 22:21] LABS: BARBITURATES NEG (NEG); BENZODIAZEPINES NEG (NEG); CANNABINOIDS POS (NEG); COCAINE NEG (NEG); METHADONE NEG (NEG); OPIATES NEG (NEG); PHENCYCLIDINE NEG (NEG)
[2018-05-13 22:22] LABS: AMORPHOUS SEDIMENT,UR PRESENT /HPF; BACTERIA,URINE FEW /HPF (0-FEW); BILIRUBIN,URINE NEG (NEG); CLARITY,URINE CLOUDY; COLOR,URINE STRAW; GLUCOSE,URINE NEG (NEG); GRANULAR CASTS,URINE MOD /HPF; NITRITE,URINE NEG (NEG); RBC,URINE OCC /HPF (0-2); SQUAMOUS EPITHELIAL CELL,UR MOD /LPF; UROBILINOGEN,URINE 0.2 mg/dL (0.2 mg/dL)
[2018-05-13 22:23] LABS: AMPHETAMINE/METHAMPHETAMINE NEG (NEG)
== END 2018-05-13 22:58 | disposition home or self-care (01) ==
LOC: ER 21:34
DX: S93.602A Unspecified sprain of left foot, initial encounter (principal); F41.9 Anxiety disorder, unspecified; J45.909 Unspecified asthma, uncomplicated; F32.9 Major depressive disorder, single episode, unspecified; G43.909 Migraine, unspecified, not intractable, without status migrainosus; F12.90 Cannabis use, unspecified, uncomplicated; Z72.0 Tobacco use; Z88.8 Allergy status to other drugs, medicaments and biological substances; X58.XXXA Exposure to other specified factors, initial encounter; Y93.89 Activity, other specified; Y92.89 Other specified places as the place of occurrence of the external cause; Y99.8 Other external cause status
CPT/HCPCS: 36415; 73630; 80307; 81001; 81025; 99284

== ENCOUNTER 2018-06-30 12:37 | Emergency (ER) | payer OTHER ==
[~2018-06-30] VITALS: Ht 165.1 cm; Wt 118.5 kg
--- NOTE | 2018-06-30 13:21 | PHYS DOC ---
Past History Past Medical History: Anxiety, Asthma, Depression, Migraines, STD, Other Past Surgical History: Appendectomy, Cholecystectomy Alcohol Use: Occasionally Drug Use: Marijuana Adult General Chief Complaint Chief Complaint: UPPER EXTREMITY PAIN [facility] HPI 22 year old female presents with right shoulder and arm pain. The patient had a busy day at work yesterday, but does not remember any specific injuries. She is a elementary spanish teacher. Yesterday evening when she was relaxing with a friend, she started having increased pain from the right cervical area down her upper shoulders and down her right arm. She thought maybe she was overdid it and went to sleep. She was able to sleep overnight. She woke up and continued to have packing but it was tolerable. She went to work. Throughout the day today, the pain has gotten worse and she nearly dropped a couple plates due to the pain. She decided to leave work and come the emergency room. She describes the pain as a sharp cramping sensation in the upper shoulder and lateral neck area. The pain radiates down her arm. She denies weakness or numbness in the hands. No history of neck or shoulder injuries or surgeries. She denies fever or chills. Review of Systems Review of Systems Constitutional: Denies fever or chills [] Eyes: Denies change in visual acuity, redness, or eye pain [] HENT: Denies nasal congestion or sore throat [] Respiratory: Denies cough or shortness of breath [] Cardiovascular: No additional information not addressed in HPI [] GI: Denies abdominal pain, nausea, vomiting, bloody stools or diarrhea [] : Denies dysuria or hematuria [] Musculoskeletal: Superior shoulder pain[] Integument: Denies rash or skin lesions [] Neurologic: Denies headache, focal weakness or sensory changes [] Endocrine: Denies polyuria or polydipsia [] All other systems were reviewed and found to be within normal limits, except as documented in this note. Allergies Allergies Allergies Coded Allergies Type Severity Reaction Last Updated Verified prochlorperazine Allergy Unknown 06/30/18 Yes Physical Exam Physical Exam Constitutional: Well developed, well nourished, no acute distress, non-toxic appearance. [] HENT: Normocephalic, atraumatic, bilateral external ears normal, oropharynx moist, no oral exudates, nose normal. [] Eyes: PERRLA, EOMI, conjunctiva normal, no discharge. [] Neck: Tenderness over the right paracervical muscles. Normal range of motion, supple, no stridor. [] Cardiovascular:Heart rate regular rhythm, no murmur [] Lungs & Thorax: Bilateral breath sounds clear to auscultation [] Abdomen: Bowel sounds normal, soft, no tenderness, no masses, no pulsatile masses. [] Skin: Warm, dry, no erythema, no rash. [] Back: No tenderness, no CVA tenderness. [] Extremities: Tenderness over the supraspinatus distribution.[] Neurologic: Alert and oriented X 3, normal motor function, normal sensory function, no focal deficits noted. [] Psychologic: Affect normal, judgement normal, mood normal. [] Current Patient Data Vital Signs Vital Signs Date Time Temp Pulse Resp B/P (MAP) Pulse Ox O2 Delivery O2 Flow Rate FiO2 06/30/18 12:37 97.6 71 18 97 Room Air EKG EKG [] Radiology/Procedures Radiology/Procedures [] Impressions: Indication: Right-sided neck pain. TECHNIQUE: 3 views of the cervical spine COMPARISON: None FINDINGS: Cervical spine is in normal anatomic alignment. No compression deformities. Atlantoaxial joint interval is preserved. Clear lung apices. No evidence of degenerative disc disease. Prevertebral soft tissues within normal limits. IMPRESSION: No acute findings. Electronically signed by: Erik Pendleton DO (06/30/2018 1:42 PM) [facility] DICTATED AND SIGNED BY: ERIK PENDLETON DO DATE: 06/30/18 1342 CC: PATRICIA NUNEZ DO; FUNMI CUMMINGS MD Course & Med Decision Making Course & Med Decision Making Pertinent Labs and Imaging studies reviewed. (See chart for details) Patient's cervical x-rays are unremarkable. I believe she just has an overuse injury with acute strain and inflammation. I will recommend 600 mg of ibuprofen 3 times a day and I will provide a short course of [place] 5/325. The patient has only had 3 narcotic prescriptions in the last 2 years. The most recent was September 2017. [] Dragon Disclaimer Dragon Disclaimer This electronic medical record was generated, in whole or in part, using a voice recognition dictation system. Departure Departure: Impression: Primary Impression: Right shoulder strain Disposition: 01 HOME, SELF-CARE Condition: STABLE Referrals: FUNMI CUMMINGS MD (PCP) Patient Instructions: Shoulder Pain, [id number], Shoulder, Range of Motion Exercises Additional Instructions: Please take ibuprofen 600 mg 3 times a day for the next 3 days. You can also use the prescription I have given you for [place] as needed for severe pain. You should not drive or operate machinery on this medication. You may need to discuss with your employer if you are allowed to work while on this medication. Scripts Hydrocodone Bit/Acetaminophen (NORCO 5-325 TABLET) 1 Each Tablet 1 TAB PO PRN Q6HRS PRN for PAIN, #10 TAB 0 Refills Prov: PATRICIA NUNEZ DO 06/30/18 Problem Qualifiers Primary Impression: Right shoulder strain Encounter type: initial encounter Qualified Codes: S46.911A - Strain of unspecified muscle, fascia and tendon at shoulder and upper arm level, right arm , initial encounter PATRICIA NUNEZ DO Jun 30, 2018 13:21
--- NOTE | 2018-06-30 13:44 | RAD ---
Indication: Right-sided neck pain. TECHNIQUE: 3 views of the cervical spine COMPARISON: None FINDINGS: Cervical spine is in normal anatomic alignment. No compression deformities. Atlantoaxial joint interval is preserved. Clear lung apices. No evidence of degenerative disc disease. Prevertebral soft tissues within normal limits. IMPRESSION: No acute findings. Electronically signed by: Erik Ybarra DO (06/30/2018 1:42 PM) [facility]
[2018-06-30] MEDS ORDERED: HYDR-3165 PO (13:56)
[2018-06-30 14:08] VITALS: BP 115/74
== END 2018-06-30 14:07 | disposition home or self-care (01) ==
LOC: ER 12:37
DX: S46.911A Strain of unspecified muscle, fascia and tendon at shoulder and upper arm level, right arm, initial encounter (principal); M54.2 Cervicalgia; F41.9 Anxiety disorder, unspecified; J45.909 Unspecified asthma, uncomplicated; F32.9 Major depressive disorder, single episode, unspecified; G43.909 Migraine, unspecified, not intractable, without status migrainosus; Z88.8 Allergy status to other drugs, medicaments and biological substances; X50.9XXA Other and unspecified overexertion or strenuous movements or postures, initial encounter; Y93.89 Activity, other specified; Y92.89 Other specified places as the place of occurrence of the external cause; Y99.0 Civilian activity done for income or pay
CPT/HCPCS: 72040; 99283

== ENCOUNTER 2018-07-28 14:47 | Emergency (ER) | payer OTHER ==
[~2018-07-28] VITALS: Ht 165.1 cm; Wt 114.3 kg
[~2018-07-28 14:47] MED LIST changes: +HYDR-3165 PO
[2018-07-28 15:01] VITALS: BP 108/74
--- NOTE | 2018-07-28 15:20 | PHYS DOC ---
Past History Past Medical History: Anxiety, Asthma, Depression, Migraines, STD, Other Past Surgical History: Appendectomy, Cholecystectomy Smoking: Cigarettes, Less than 1pk/day Alcohol Use: Occasionally Drug Use: Marijuana Adult General Chief Complaint Chief Complaint: ANKLE PROBLEM HPI HPI Patient is a 23-year-old female presents complaining of right ankle pain. Last evening she was walking down stairs and sustained an inversion mechanism injury. Pain is worse on the lateral portion of the ankle. She is taken no medicine for the pain. It gets worse with walking, better with rest. No numbness or tingling. Pain is moderate to severe.[] Review of Systems Review of Systems Constitutional: Denies fever or chills [] Eyes: Denies change in visual acuity, redness, or eye pain [] HENT: Denies nasal congestion or sore throat [] Respiratory: Denies cough or shortness of breath [] Cardiovascular: No chest pain or palpitations[] GI: Denies abdominal pain, nausea, vomiting, bloody stools or diarrhea [] : Denies dysuria or hematuria [] Musculoskeletal: Denies back pain, see history of present illness[] Integument: Denies rash or skin lesions [] Neurologic: Denies headache, focal weakness or sensory changes [] Endocrine: Denies polyuria or polydipsia [] All other systems were reviewed and found to be within normal limits, except as documented in this note. Current Medications Current Medications Current Medications Medications (Trade) Dose Ordered Sig/Hari Start Time Stop Time Status Last Admin Dose Admin Acetaminophen (Tylenol) 650 mg 1X ONCE 07/28/18 15:30 07/28/18 15:31 UNV Allergies Allergies Allergies Coded Allergies Type Severity Reaction Last Updated Verified prochlorperazine Allergy Unknown 06/30/18 Yes Physical Exam Physical Exam Constitutional: Well developed, well nourished, no acute distress, non-toxic appearance. [] HENT: Normocephalic, atraumatic, bilateral external ears normal, oropharynx moist, no oral exudates, nose normal. [] Eyes: PERRLA, EOMI, conjunctiva normal, no discharge. [] Neck: Normal range of motion, no tenderness, supple, no stridor. [] Cardiovascular:Heart rate regular rhythm, no murmur [] Lungs & Thorax: Bilateral breath sounds clear to auscultation [] Abdomen: Not examined. [] Skin: Warm, dry, no erythema, no rash. [] Back: No tenderness, no CVA tenderness. [] Extremities: Tenderness to palpation on the right ankle lateral malleolus and along the course of the anterior patellar fibular ligament. There is no tenderness the base of the fifth metatarsal. No laxity of the ankle. A joint above and a joined below the ankle were evaluated and were normal. No cyanosis, no clubbing, ROM intact, no edema. [] Neurologic: Alert and oriented X 3, normal motor function, normal sensory function, no focal deficits noted. [] Psychologic: Affect normal, judgement normal, mood normal. [] Current Patient Data Vital Signs Vital Signs Date Time Temp Pulse Resp B/P (MAP) Pulse Ox O2 Delivery O2 Flow Rate FiO2 07/28/18 15:01 97.8 72 18 96 Room Air EKG EKG [] Radiology/Procedures Radiology/Procedures PROCEDURE: ANKLE RIGHT 3V 3 view study of the right ankle Clinical indications: Twisting injury yesterday. Lateral ankle pain. FINDINGS: No acute fracture or dislocation or lytic process is evident. The mortise ankle joint is intact. Small plantar spur of the calcaneus is seen. IMPRESSION: No acute fracture.[] Course & Med Decision Making Course & Med Decision Making Pertinent Labs and Imaging studies reviewed. (See chart for details) ED course: Patient arrived, was placed in bed, and tolerated exam well. She was transported to and from radiology with any complications. After return of the imaging findings, these were discussed with the patient. Larry [place] was applied. She was distal neurovascularly intact after the splint application. She was discharged in improved condition. Medical decision making: There is no evidence of a fracture dislocation. No evidence of neurologic or vascular compromise. No evidence of grade 3 sprain.[] Dragon Disclaimer Dragon Disclaimer This electronic medical record was generated, in whole or in part, using a voice recognition dictation system. Departure Departure: Impression: Primary Impression: Moderate right ankle sprain Disposition: HOME, SELF-CARE Condition: IMPROVED Referrals: FUNMI CUMMINGS MD (PCP) Follow-up in 2 days Patient Instructions: Ankle Sprain, Acute, with Phase I Rehab[facility] Additional Instructions: Follow-up with your regular doctor in 2 days. Rest the ankle as much as possible. Apply warm compresses 4 times a day for 15 minutes at a time. Stop smoking. Return to the ER if worsening pain or any other concerns. Scripts Acetaminophen (TYLENOL) 325 Mg Tablet 1-2 TAB PO QID for PAIN, #60 TAB 0 Refills Prov: JOHNY ADAMS DO 07/28/18 Problem Qualifiers Primary Impression: Moderate right ankle sprain Encounter type: initial encounter Qualified Codes: S93.401A - Sprain of unspecified ligament of right ankle, initial encounter JOHNY ADAMS DO Jul 28, 2018 15:20
[2018-07-28] MEDS ORDERED: ACETAMINOPHEN 325 MG TABLET PO ONE (15:30)
--- NOTE | 2018-07-28 15:33 | RAD ---
3 view study of the right ankle Clinical indications: Twisting injury yesterday. Lateral ankle pain. FINDINGS: No acute fracture or dislocation or lytic process is evident. The mortise ankle joint is intact. Small plantar spur of the calcaneus is seen. IMPRESSION: No acute fracture. Electronically signed by: Hammad Guajardo MD (07/28/2018 3:30 PM) [id number]
[2018-07-28] MEDS ORDERED: ACET325T9 PO (15:48)
== END 2018-07-28 15:54 | disposition home or self-care (01) ==
LOC: ER 14:47
DX: S93.401A Sprain of unspecified ligament of right ankle, initial encounter (principal); F41.9 Anxiety disorder, unspecified; J45.909 Unspecified asthma, uncomplicated; F32.9 Major depressive disorder, single episode, unspecified; G43.909 Migraine, unspecified, not intractable, without status migrainosus; F17.210 Nicotine dependence, cigarettes, uncomplicated; Z88.8 Allergy status to other drugs, medicaments and biological substances; X50.9XXA Other and unspecified overexertion or strenuous movements or postures, initial encounter; Y93.01 Activity, walking, marching and hiking; Y92.89 Other specified places as the place of occurrence of the external cause; Y99.8 Other external cause status
CPT/HCPCS: 29515; 73610; 99284

== ENCOUNTER 2020-08-15 16:33 | Emergency (ER) | payer SELFPAY ==
[~2020-08-15] VITALS: Ht 165.1 cm; Wt 105.4 kg
[~2020-08-15 16:33] MED LIST changes: +ACET325T9 PO
[2020-08-15 16:44] VITALS: BP 124/70
[2020-08-15] MEDS: KETOROLAC 30 MG/ML VIAL. IM ONE (17:09)
--- NOTE | 2020-08-15 17:12 | PHYS DOC ---
Past History Past Medical History: Anxiety, Asthma, Depression, Migraines, STD, Other Additional Past Medical Histor: Factor 5, Corbin toes (KOBY RODRIGUEZ DO) Past Surgical History: Appendectomy, Cholecystectomy (KOBY RODRIGUEZ DO) Smoking: Cigarettes, Less than 1pk/day Alcohol Use: Occasionally Drug Use: Marijuana (KOBY RODRIGUEZ DO) General Adult EDM: Chief Complaint: PELVIC PAIN HPI: HPI: 25-year-old female presents with report of low abdominal/pelvic pain which has been ongoing for the past 3 days. Worse with walking. Patient does report some vaginal discharge which is white in nature. Denies vaginal bleeding. Denies . Reports last menstrual period was 2 weeks ago. Denies concern for STDs. Patient reports last sexual activity was 5 months ago. Patient denies history of endometriosis or ovarian cyst. Patient reports concern as her mother had history of cervical cancer. Patient reports she does not follow with a CONFORMAL PAD FORMER. Denies dysuria or hematuria. Reports past surgical history of cholecystectomy and appendectomy. (KOBY RODRIGUEZ DO) Review of Systems: Review of Systems: Constitutional: Denies fever or chills Eyes: Denies redness or eye pain HENT: Denies nasal congestion or sore throat Respiratory: Denies cough or shortness of breath Cardiovascular: Denies chest pain or palpitations GI: Reports low abdominal/pelvic pain; denies nausea or vomiting /CONFORMAL PAD FORMER: Denies dysuria or hematuria; reports vaginal discharge Musculoskeletal: Denies back pain or joint pain Integument: Denies rash or skin lesions Neurologic: Denies headache, focal weakness or sensory changes Complete systems were reviewed and found to be within normal limits, except as documented in this note. (KOBY RODRIGUEZ DO) Current Medications: Current Meds: Current Medications Medications (Trade) Dose Ordered Sig/Hari Start Time Stop Time Status Last Admin Dose Admin Ketorolac Tromethamine (Toradol 30mg Vial) 30 mg 1X ONCE 08/15/20 17:00 08/15/20 17:01 UNV (KOBY RODRIGUEZ DO) Allergies: Allergies: Allergies Coded Allergies Type Severity Reaction Last Updated Verified prochlorperazine Allergy Unknown 06/30/18 Yes (KOBY RODRIGUEZ DO) Physical Exam: PE: Constitutional: Well developed, well nourished, no acute distress, non-toxic appearance HENT: Normocephalic, atraumatic Eyes: Conjunctiva normal, no discharge Neck: Normal range of motion, supple Lungs & Thorax: No respiratory distress, equal chest rise and fall Abdomen: Soft, suprapubic and RLQ/pelvic tenderness, no guarding/rebound tenderness/distention Pelvic Exam: Arnav Rdorigez RN, white/clear foamy discharge noted in vaginal vault, os open with some clear discharge, mild CMT, right adnexal tenderness on bimanual exam Skin: Warm, dry, no erythema, no rash Back: No tenderness, no CVA tenderness Extremities: No tenderness, ROM intact, no edema Neurologic: Alert and oriented X 3, no focal deficits noted Psychologic: Affect anxious, judgment normal (KOBY RODRIGUEZ DO) Current Patient Data: Vital Signs: Vital Signs Date Time Temp Pulse Resp B/P (MAP) Pulse Ox O2 Delivery O2 Flow Rate FiO2 08/15/20 16:44 98.4 76 16 124/70 (88) 100 Room Air (KOBY RODRIGUEZ DO) EKG: EKG: [] (KOBY RODRIGUEZ DO) Radiology/Procedures: Radiology/Procedures: [] (KOBY RODRIGUEZ DO) Radiology/Procedures: [place] [address] IMAGING REPORT Signed PATIENT: MIKE C[place]AND MACCOUNT: [id number] : 1995 LOCATION: ER AGE: 25 SEX: F EXAM STATUS: REG ER ORD. PHYSICIAN: KOBY RODRIGUEZ DO REASON: pelvic pain PROCEDURE: US PELVIS W/TV STUDY: US PELVIS W/TV HISTORY: Pelvic pain. COMPARISON: None. TECHNIQUE: Pelvic ultrasound was performed with transabdominal and transvaginal probes. FINDINGS: The uterus measures 9.1 x 4.6 x 3 cm. The endometrial echo measures 0.8 cm. No uterine parenchymal mass or other focal abnormality. Small amount of fluid within the cervical canal. The right ovary measures 3.4 x 2.8 x 2.1 cm and the left ovary 3.2 x 3.3 x 2.8 cm. No complex cyst or mass at the right adnexa. Simple left ovarian cyst measuring up to 2 cm. Doppler flow is maintained to both ovaries. No free pelvic fluid. IMPRESSION: 1. Small simple appearing left ovarian cyst measuring up to 2 cm is not atypical for patient age. There are no findings of torsion with Doppler flow maintained to both ovaries. 2. Within normal limits uterus and endometrium. Small amount of fluid within the cervical canal is most likely physiologic in the absence of any abnormal vaginal discharge or bleeding. Electronically signed by: MAIKOL MARR MD (08/15/2020 6:07 PM) [facility] DICTATED AND SIGNED BY: MAIKOL MARR MD DATE: 08/15/201804 CC: FUNMI CUMMINGS MD; KOBY RODRIGUEZ DO ~MTH0 0 (EMILY AWAD MD) Heart Score: C/O Chest Pain: N/A (KOBY RODRIGUEZ DO) C/O Chest Pain: N/A (EMILY AWAD MD) Course & Med Decision Making: Course & Med Decision Making Pertinent Labs and Imaging studies reviewed. (See chart for details) Patient presents with pelvic pain with vaginal discharge. History of prior cholecystectomy and appendectomy. Pelvic exam performed with notation of mild CMT and right adnexal tenderness. Chlamydia/gonorrhea cultures pending. Patient declined empiric antibiotic therapy. Wet mount negative. UA with signs of infection. Urine negative. Keflex provided. Symptomatic treatment provided. Pelvic ultrasound ordered and pending. Signout given to Dr. Awad for further evaluation and final disposition. Discussed current findings and plan with patient, who acknowledges understanding and agreement. (KOBY RODRIGUEZ DO) Course & Med Decision Making See Dr. Rodriguez chart for details prior shift change. Patient stay on a clear fluid diet for the next 2 days. No solids or milk products. Allow bowel rest. Follow-up primary care has been review ED record. Currently no acute surgical processes found on ultrasound. Push vitamin C drinks. He did have findings consistent with a urinary tract infection. Take as directed. Follow-up cultures. Impression: 1. Abdomen pain 2. Ovarian cyst 3. Urinary tract infection (EMILY AWAD MD) Dragon Disclaimer: Dragon Disclaimer: This electronic medical record was generated, in whole or in part, using a voice recognition dictation system. (KOBY RODRIGUEZ DO) Departure Departure: Impression: Primary Impression: Pelvic pain Additional Impression: UTI (urinary tract infection) Qualified Codes: N30.00 - Acute cystitis without hematuria Referrals: FUNMI CUMMINGS MD (PCP) Scripts Cephalexin (KEFLEX) 750 Mg Capsule 500 MG PO TID for uti for 7 Days, #30 CAP Prov: EMILY AWAD MD 08/15/20 Dragon Disclaimer This chart was dictated in whole or in part using Voice Recognition software in a busy, high-work load, and often noisy Emergency Department environment. It may contain unintended and wholly unrecognized errors or omissions. (EMILY AWAD MD) KOBY RODRIGUEZ DO August 15, 2020 17:11 EMILY AWAD MD August 15, 2020 18:21
[2020-08-15 17:37] LABS: BILIRUBIN,URINE NEG (NEG); CLARITY,URINE CLOUDY; COLOR,URINE YELLOW; GLUCOSE,URINE NEG (NEG); NITRITE,URINE POS (NEG); UROBILINOGEN,URINE 0.2 mg/dL (0.2 mg/dL)
[2020-08-15 17:38] LABS: BACTERIA,URINE MANY /HPF (0-FEW); RBC,URINE OCC /HPF (0-2); SQUAMOUS EPITHELIAL CELL,UR MOD /LPF; WBC,URINE 20-40 /HPF (0-4)
--- NOTE | 2020-08-15 18:10 | RAD ---
STUDY: US PELVIS W/TV HISTORY: Pelvic pain. COMPARISON: None. TECHNIQUE: Pelvic ultrasound was performed with transabdominal and transvaginal probes. FINDINGS: The uterus measures 9.1 x 4.6 x 3 cm. The endometrial echo measures 0.8 cm. No uterine parenchymal ma ss or other focal abnormality. Small amount of fluid within the cervical canal. The right ovary measures 3.4 x 2.8 x 2.1 cm and the left ovary 3.2 x 3.3 x 2.8 cm. No complex cyst or mass at the right adnexa. Simple left ovarian cyst measuring up to 2 cm. Doppler flow is maintained to both ovaries. No free pelvic fluid. IMPRESSION: 1. Small simple appearing left ovarian cyst measuring up to 2 cm is not atypical for patient age. Th ere are no findings of torsion with Doppler flow maintained to both ovaries. 2. Within normal limits uterus and endometrium. Small amount of fluid within the cervical canal is m ost likely physiologic in the absence of any abnormal vaginal discharge or bleeding. Electronically signed by: MAIKOL MARR MD (08/15/2020 6:07 PM) [facility]
[2020-08-15] MEDS: CEPHALEXIN 250 MG CAPSULE PO ONE (18:25)
[2020-08-15] MEDS: oxyCODONE/APAP 5/325 1 TAB TABLET PO ONE (18:26)
[2020-08-15] MEDS ORDERED: CEPH750C9 PO (18:30)
[2020-08-16 17:07] LABS: CHLAMYDIA PROBE Negative (Negative)
== END 2020-08-15 18:45 | disposition home or self-care (01) ==
LOC: ER 16:33
DX: N39.0 Urinary tract infection, site not specified (principal); J45.909 Unspecified asthma, uncomplicated; Z90.49 Acquired absence of other specified parts of digestive tract
CPT/HCPCS: 76830; 76856; 81001; 81025; 87086; 87480; 87491; 87510; 87591; 87660; 96372; 99284; J1885; Q0111

== ENCOUNTER 2020-10-04 14:15 | Emergency (ER) | payer SELFPAY ==
[~2020-10-04] VITALS: Ht 162.6 cm; Wt 102.5 kg
[~2020-10-04 14:15] MED LIST changes: +CEPH750C9 PO
[2020-10-04 14:27] VITALS: BP 133/66
[2020-10-04] MEDS ORDERED: IPRATRPIUM/ALBUTEROL 0.5/2.5MG 3 ML NEBU. NEB ONE (15:00)
[2020-10-04] MEDS ORDERED: predniSONE 10 MG TABLET. PO ONE (15:00)
--- NOTE | 2020-10-04 15:05 | PHYS DOC ---
Past History Past Medical History: Anxiety, Asthma, Bipolar, Other Additional Past Medical Histor: PTSD, WEAKSPINE (BELKYS ARIAS APRN) Past Surgical History: Cholecystectomy (BELKYS ARIAS APRN) Smoking: Cigarettes, Less than 1pk/day Alcohol Use: None Drug Use: Marijuana (BELKYS ARIAS APRN) General Adult EDM: Chief Complaint: COUGH HPI: HPI: Patient is a 25-year-old female being seen in the ER today for increased shortness of breath, green productive cough, runny nose and congestion, fatigue, and headache. Patient reports that symptoms started over the last couple days she states that she has a history of asthma, bronchitis, and pneumonia. She states that she takes nebulizer treatments at home, albuterol, Advair, and an inhaled corticosteroid. She is a current smoker. She denies any sick contacts, fevers, nausea, vomiting, diarrhea, chest pain. She is not vaccinated for COVID-19. (BELKYS ARIAS APRN) Review of Systems: Review of Systems: 14 body systems of the review of systems have been reviewed. See HPI for pertinent positive and negative responses, otherwise all other systems are negative, nonpertinent or noncontributory (BELKYS ARIAS APRN) Current Medications: Current Meds: Current Medications Medications (Trade) Dose Ordered Sig/Hari Start Time Stop Time Status Last Admin Dose Admin Albuterol/ Ipratropium (Duoneb) 3 ml 1X ONCE 10/04/20 15:00 10/04/20 15:01 UNV Prednisone (Prednisone) 40 mg 1X ONCE 10/04/20 15:00 10/04/20 15:01 UNV (BELKYS ARIAS APRN) Allergies: Allergies: Allergies Coded Allergies Type Severity Reaction Last Updated Verified almond Allergy Unknown 10/04/20 Yes prochlorperazine Allergy Unknown 06/30/18 Yes (BELKYS ARIAS APRN) Physical Exam: PE: Constitutional: Well developed, well nourished, no acute distress, non-toxic appearance. [] HENT: Normocephalic, atraumatic, bilateral external ears normal, oropharynx is moist with mild erythema, 2+ tonsillar enlargement without exudate, turbinates are red and swollen with discharge Eyes: PERRL, conjunctiva normal, no discharge. [] Neck: Normal range of motion, no tenderness, supple, no stridor, no cervical lymphadenopathy with palpation [] Cardiovascular:Heart rate regular rhythm, no murmur [] Lungs & Thorax: Scattered wheezing noted throughout all lung vann, patient is nonlabored [] Abdomen: Bowel sounds normal, soft, no tenderness, no masses, no pulsatile masses. [] Skin: Warm, dry, no erythema, no rash. [] Extremities: No tenderness, no cyanosis, no clubbing, ROM intact, no edema. [] Neurologic: Alert and oriented X 3, normal motor function, normal sensory function, no focal deficits noted. [] Psychologic: Affect normal, judgement normal, mood normal. [] (BELKYS ARIAS APRN) Current Patient Data: Vital Signs: Vital Signs Date Time Temp Pulse Resp B/P (MAP) Pulse Ox O2 Delivery O2 Flow Rate FiO2 10/04/20 14:27 98.7 71 18 133/66 (88) 96 Room Air (BELKYS ARIAS APRN) EKG: EKG: [] (BELKYS ARIAS APRN) Radiology/Procedures: Radiology/Procedures: PROCEDURE: PORTABLE CHEST 1V INDICATION: Reason: soa / Spl. Instructions: / History: COMPARISON: April 2017 FINDINGS: Single view of chest obtained. No focal airspace consolidation. Cardiomediastinal contour unremarkable. No acute osseous abnormality. IMPRESSION: * No focal airspace consolidation or edema. Electronically signed by: Julian Thomas MD (10/04/2020 3:10 PM) [id number] DICTATED AND SIGNED BY: JULIAN THOMAS MD DATE: 10/04/20 1507 CC: AMISHA EWING DO; FUNMI CUMMINGS MD; BELKYS ARIAS APRN ~MTH0 0 (BELKYS ARIAS APRN) Heart Score: C/O Chest Pain: No Risk Factors: Risk Factors: DM, Current or recent (<one month) smoker, HTN, HLP, family history of CAD, obesity. Risk Scores: Score 0 - 3: 2.5% MACE over next 6 weeks - Discharge Home Score 4 - 6: 20.3% MACE over next 6 weeks - Admit for Clinical Observation Score 7 - 10: 72.7% MACE over next 6 weeks - Early Invasive Strategies (BELKYS ARIAS APRN) Course & Med Decision Making: Course & Med Decision Making Pertinent Labs and Imaging studies reviewed. (See chart for details) Patient was seen in the ER today for cough, increased shortness of breath, runny nose and congestion, fatigue, and headache. She has a positive history of asthma and pneumonia. She was tested for COVID-19 and her results are pending. A chest x-ray was done in the ER that was negative for any acute findings. Patient was given oral steroid and a breathing treatment. She reports feeling better after receiving treatment and her lung sounds are clear and she remains nonlabored. Patient will be discharged home with prednisone. She is instructed to self isolate until the results of her COVID-19 testing. Patient is agreeable to care plan. (BELKYS ARIAS APRN) Course & Med Decision Making I oversaw on the above date of service of this patient. This patient was evaluated, examined, treated, and dispositioned from the emergency department by the mid-level practitioner. I reviewed care of patient and help navigate care with PRESS HAND. I reviewed note and agree to findings, plan of care, and disposition as stated. Electronically signed, Amisha Ewing DO (AMISHA EWING DO) Angelique Disclaimer: Angelique Disclaimer: This electronic medical record was generated, in whole or in part, using a voice recognition dictation system. (BELKYS ARIAS APRN) Departure Departure: Impression: Primary Impression: Cough Additional Impressions: Person under investigation for COVID-19 Asthma Disposition: 01 HOME / SELF CARE / HOMELESS Condition: IMPROVED Referrals: FUNMI CUMMINGS MD (PCP) Additional Instructions: You were seen for upper respiratory symptoms, cough and possible infection with COVID-19. Your physical exam was reassuring. Your chest x-ray was normal. We tested you for COVID-19 but this test does not come back for 1 to 2 days. In the meantime you need to quarantine yourself at home away from all other individuals, especially those who are elderly or have any other chronic health issues or an immunocompromised status. Alternate Tylenol and ibuprofen as needed for body aches and pain. If your test does come back positive you need to quarantine yourself for 10 days until symptom-free. You should make sure to drink plenty of fluids, get plenty of rest and use prescribed steroids to completion. You should return to the ED if you develop worsening cough, shortness of breath, chest pain, or any other new or concerning symptoms. Scripts Prednisone (PREDNISONE) 20 Mg Tablet 40 MG PO DAILY for asthma for 4 Days, #8 TAB Prov: AMISHA EWING DO 10/04/20 BELKYS ARIAS APRN Oct 04, 2020 15:05 AMISHA EWING DO Oct 04, 2020 15:53
--- NOTE | 2020-10-04 15:13 | RAD ---
INDICATION: Reason: soa / Spl. Instructions: / History: COMPARISON: April 2017 FINDINGS: Single view of chest obtained. No focal airspace consolidation. Cardiomediastinal contour unremarkable. No acute osseous abnormality. IMPRESSION: * No focal airspace consolidation or edema. Electronically signed by: Bryant Burgos MD (10/04/2020 3:10 PM) [id number]
[2020-10-04] MEDS ORDERED: PRED20TA PO (15:53)
== END 2020-10-04 16:00 | disposition home or self-care (01) ==
LOC: ER 14:15
DX: J45.909 Unspecified asthma, uncomplicated (principal); F17.210 Nicotine dependence, cigarettes, uncomplicated; F12.10 Cannabis abuse, uncomplicated; Z20.822 Contact with and (suspected) exposure to COVID-19; Z88.6 Allergy status to analgesic agent; Z90.49 Acquired absence of other specified parts of digestive tract
CPT/HCPCS: 71045; 94640; 94760; 99284; C9803; J7512; U0003

== ENCOUNTER 2021-08-21 21:37 | Emergency (ER) | payer SELFPAY ==
[~2021-08-21] VITALS: Ht 162.6 cm; Wt 109.0 kg
[~2021-08-21 21:37] MED LIST changes: +PRED20TA PO
[2021-08-21 22:25] LABS: CLARITY,URINE HAZY; COLOR,URINE YELLOW; GLUCOSE,URINE NEG (NEG)
[2021-08-21 22:26] LABS: NITRITE,URINE NEG (NEG); UROBILINOGEN,URINE 0.2 mg/dL (0.2 mg/dL)
[2021-08-21 22:27] LABS: BACTERIA,URINE MOD /HPF (0-FEW); SQUAMOUS EPITHELIAL CELL,UR MANY /LPF
--- NOTE | 2021-08-21 22:28 | PHYS DOC ---
Past History Past Medical History: Anxiety, Asthma, Bipolar, Other Additional Past Medical Histor: PTSD, WEAKSPINE Past Surgical History: Cholecystectomy Smoking: Cigarettes, Less than 1pk/day Alcohol Use: None Drug Use: Marijuana General Adult EDM: Chief Complaint: VAGINAL BLEEDING HPI: HPI: 26-year-old female believes she is 6 weeks presents with vaginal bleeding. 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 She went to wipe her self today and she had more blood than she expected. It also seems to be somewhat darker in color. This made her very concerned so she came to the emergency room. She has not seen her OB yet. She has not had an ultrasound for confirmation. She does not have abdominal pain. Denies fever or chills. Review of Systems: Review of Systems: Constitutional: Denies fever or chills Eyes: Denies change in visual acuity HENT: Denies nasal congestion or sore throat Respiratory: Denies cough or shortness of breath Cardiovascular: Denies chest pain or edema GI: Denies abdominal pain, nausea, vomiting, bloody stools or diarrhea : Vaginal bleeding in Musculoskeletal: Denies back pain or joint pain Integument: Denies rash Neurologic: Denies headache, focal weakness or sensory changes Endocrine: Denies polyuria or polydipsia Lymphatic: Denies swollen glands Psychiatric: Denies depression or anxiety Allergies: Allergies: Allergies Coded Allergies Type Severity Reaction Last Updated Verified almond Allergy Unknown 10/04/20 Yes prochlorperazine Allergy Unknown 06/30/18 Yes Physical Exam: PE: Constitutional: Well developed, well nourished, obese, no acute distress, non- toxic appearance. [] HENT: Normocephalic, atraumatic, bilateral external ears normal, oropharynx moist, no oral exudates, nose normal. [] Eyes: PERRLA, EOMI, conjunctiva normal, no discharge. [] Neck: Normal range of motion, no tenderness, supple, no stridor. [] Cardiovascular: Heart rate regular rhythm, no murmur [] Lungs & Thorax: Bilateral breath sounds clear to auscultation [] Abdomen: Bowel sounds normal, soft, no tenderness, no masses, no pulsatile masses. [] Skin: Warm, dry, no erythema, no rash. [] Back: No tenderness, no CVA tenderness. [] Extremities: No tenderness, no cyanosis, no clubbing, ROM intact, no edema. [] Neurologic: Alert and oriented X 3, normal motor function, normal sensory function, no focal deficits noted. [] Psychologic: Affect normal, judgement normal, mood anxious. [] Current Patient Data: Labs: Laboratory Tests Test 08/21/21 21:11 POC Urine HCG, Qualitative hcg positive (Negative) EKG: EKG: [] Radiology/Procedures: Radiology/Procedures: [] Impressions: US OB <14 WKS +TV Clinical Indication: Reason: +preg, +bleeding / Spl. Instructions: / History: Comparison: None. TECHNIQUE: Real-time ultrasound imaging of the pelvis using transvaginal window is performed. Findings: Anteverted uterus measures 7.3 x 5.1 x 3.8 cm. Endometrial stripe is prominent. There is a tiny probable gestational sac on the left near the fundus. No internal contents are currently seen. The mean gestational sac diameter is 0.4 cm, 5 weeks and 1 day. EDC ultrasound is April 22, 2022. The maternal ovaries demonstrate normal blood flow. There is a left ovary probable corpus luteal cyst measuring 1.7 x 1.5 x 1.7 cm. There is no cul-de-sac free fluid. No evidence of adnexal mass. IMPRESSION: 1. There is a tiny probable intrauterine gestational sac with no internal contents. The estimated sonographic gestational age is 5 weeks and 1 day. Suggest serial quantitative beta hCG. Consider short-term follow-up pelvic ultrasound. 2. There is a probable small left corpus luteum. Electronically signed by: Trey Pan MD (08/22/2021 12:12 AM) [facility] DICTATED AND SIGNED BY: TREY PAN MD DATE: 08/22/21 0005 CC: PATRICIA NUNEZ DO; PCP,NO ~ Heart Score: C/O Chest Pain: N/A Risk Factors: Risk Factors: DM, Current or recent (<one month) smoker, HTN, HLP, family history of CAD, obesity. Risk Scores: Score 0 - 3: 2.5% MACE over next 6 weeks - Discharge Home Score 4 - 6: 20.3% MACE over next 6 weeks - Admit for Clinical Observation Score 7 - 10: 72.7% MACE over next 6 weeks - Early Invasive Strategies Course & Med Decision Making: Course & Med Decision Making Pertinent Labs and Imaging studies reviewed. (See chart for details) Patient's labs are unremarkable. Urinalysis positive for infection. I gave her a gram Rocephin in the emergency room and 3 more days of Keflex. The patient is O- so she will get RhoGAM. Her pelvic ultrasound does show probable in trauterine gestational sac 5 weeks 1 day. hCG 593. She will need to follow this up with her OB for serial hCGs and a future ultrasound. She is stable for discharge at this time. [] Dragon Disclaimer: Dragon Disclaimer: This electronic medical record was generated, in whole or in part, using a voice recognition dictation system. Departure Departure: Impression: Primary Impression: Vaginal bleeding during Additional Impression: UTI (urinary tract infection) Qualified Codes: N30.01 - Acute cystitis with hematuria Disposition: HOME / SELF CARE / HOMELESS Condition: STABLE Referrals: PCPKARIN (PCP) Patient Instructions: Vaginal Bleeding During , [id number] Scripts Cephalexin (CEPHALEXIN) 500 Mg Tablet 1 TAB PO TID for UTI for 3 Days, #9 TAB Prov: PATRICIA NUNEZ DO 08/22/21 PATRICIA NUNEZ DO August 21, 2021 22:28
[2021-08-21 23:22] LABS: BASO # 0.1 x10^3/uL (0.0-0.2); BASO % 1 % (0-3); EOS # 0.4 x10^3/uL (0.0-0.7); EOS % 4 % (0-3); HEMATOCRIT 39.2 % (36.0-47.0); HEMOGLOBIN 13.2 g/dL (12.0-15.5); LYMPH # 2.8 x10^3/uL (1.0-4.8); LYMPH % 28 % (24-48); MEAN CORPUSCULAR HEMOGLOBIN 29 pg (25-35); MEAN CORPUSCULAR HGB CONC 34 g/dL (31-37); MEAN CORPUSCULAR VOLUME 87 fL (79-100); MONO # 0.8 x10^3/uL (0.0-1.1); MONO % 8 % (0-9); NEUT % 60 % (31-73); PLATELET COUNT 306 x10^3/uL (140-400); RED BLOOD COUNT 4.52 x10^6/uL (3.50-5.40); RED CELL DISTRIBUTION WIDTH 13.7 % (11.5-14.5)
[2021-08-21 23:32] LABS: CALCIUM 9.7 mg/dL (8.5-10.1); CREATININE 0.7 mg/dL (0.6-1.0); POTASSIUM 3.6 mmol/L (3.5-5.1)
[2021-08-21 23:38] LABS: ALBUMIN/GLOBULIN RATIO 1.1 (1.0-1.7); TOTAL BILIRUBIN 0.4 mg/dL (0.2-1.0); TOTAL PROTEIN 7.8 g/dL (6.4-8.2)
--- NOTE | 2021-08-22 00:14 | RAD ---
US OB <14 WKS +TV Clinical Indication: Reason: +preg, +bleeding / Spl. Instructions: / History: Comparison: None. TECHNIQUE: Real-time ultrasound imaging of the pelvis using transvaginal window is performed. Findings: Anteverted uterus measures 7.3 x 5.1 x 3.8 cm. Endometrial stripe is prominent. There is a tiny probable gestational sac on the left near the fundus . No internal contents are currently seen. The mean gestational sac diameter is 0.4 cm, 5 weeks and 1 day. EDC ultrasound is April 22, 2022. The maternal ovaries demonstrate normal blood flow. There is a left ovary probable corpus luteal cyst measuring 1.7 x 1.5 x 1.7 cm. There is no cul-de-sac free fluid. No evidence of adnexal mass. IMPRESSION: 1. There is a tiny probable intrauterine gestational sac with no internal contents. The estimated so nographic gestational age is 5 weeks and 1 day. Suggest serial quantitative beta hCG. Consider short- term follow-up pelvic ultrasound. 2. There is a probable small left corpus luteum. Electronically signed by: Trey Brady MD (08/22/2021 12:12 AM) [facility]
[2021-08-22] MEDS ORDERED: CEPH500T PO (00:22)
[2021-08-22] MEDS ORDERED: cefTRIAXone SODIUM 1 GM VIAL ONE (00:49)
[2021-08-22] MEDS ORDERED: IV NORMAL SALINE 50ML 50 ML ONE (00:49)
[2021-08-22 02:27] VITALS: BP 115/55
[2021-08-22 02:35] VITALS: BP 115/55
== END 2021-08-22 02:35 | disposition home or self-care (01) ==
LOC: ER 21:37
DX: O23.41 Unspecified infection of urinary tract in pregnancy, first trimester (principal); O46.91 Antepartum hemorrhage, unspecified, first trimester; O99.511 Diseases of the respiratory system complicating pregnancy, first trimester; J45.909 Unspecified asthma, uncomplicated; O99.331 Smoking (tobacco) complicating pregnancy, first trimester; Z3A.01 Less than 8 weeks gestation of pregnancy; Z91.018 Allergy to other foods; Z88.8 Allergy status to other drugs, medicaments and biological substances
CPT/HCPCS: 36415; 76801; 76817; 80053; 81001; 81025; 84702; 85025; 86850; 86900; 86901; 87077; 87086; 87186; 96365; 96366; 96372; 99285; J0696; J2790